=== PATIENT | female | born 1930 | race Caucasian/White ===

== ENCOUNTER → 2016-05-28 | Outpatient (CLI) | payer MEDICARE, MEDICAID ==
[~2016-05-28] MED LIST: NORCO 325 MG-51 TAB PO; SIMVASTATIN20 MG PO
--- NOTE | 2016-05-28 08:36 | CARDIOVASCULAR REPORT ---
"Cerebrovascular Exam Indications: 433.10 Occlusion/stenosis of carotid artery without cerebral infarction. IMPRESSIONS 1. The bilateral vertebral arteries are patent with normal antegrade flow. 2. Study suggests less than 20% stenosis involving the right internal carotid artery. 3. Study suggests 20-49% stenosis involving the left internal carotid artery. Disease regression from the study of 01-Aug-2014. Had right endarterectomy following last exam of 08/01/2014 4. Tortuous carotid arteries seen LICA History: Risk factors: Hypertension. Hyperlipidemia. Labs, prior tests, procedures, and surgery: Right endarterectomy. Labs, prior tests, procedures, and surgery: Right endarterectomy. Carotid duplex study. Complete study and Doppler flow study including spectral analysis, color and gillespie scale imaging. Height: Height: 157.5cm. Height: 62in. Weight: Weight: 51.7kg. Weight: 113.8lb. Body mass index: BMI: 20.9kg/m^2. Body surface area: BSA: 1.5m^2. Location: Vascular laboratory. Patient status: Outpatient. Tables: Arterial flow: + +--------+--------+ |Location |V sys |V ed | + +--------+--------+ |Right CCA - proximal|98.2cm/s|12.6cm/s| + +--------+--------+ |Right CCA - distal |73.9cm/s|10.2cm/s| + +--------+--------+ |Right ECA |80.1cm/s|--------| + +--------+--------+ |Right ICA - proximal|91.1cm/s|14.1cm/s| + +--------+--------+ |Right ICA - mid |70.7cm/s|14.9cm/s| + +--------+--------+ |Right ICA - distal |68.4cm/s|9.4cm/s | + +--------+--------+ |Right vertebral |74.6cm/s|--------| + +--------+--------+ |Left CCA - proximal |69.1cm/s|12.6cm/s| + +--------+--------+ |Left CCA - distal |83.3cm/s|14.9cm/s| + +--------+--------+ |Left ECA |121cm/s |--------| + +--------+--------+ |Left ICA - proximal |98.2cm/s|17.3cm/s| + +--------+--------+ |Left ICA - mid |112cm/s |20.4cm/s| + +--------+--------+ |Left ICA - distal |123cm/s |22cm/s | + +--------+--------+ |Left vertebral |35.4cm/s|--------| + +--------+--------+ Velocity ratios: + + + + + + | |Right, V sys|Right, V ed|Left, V sys|Left, V ed| + + + + + + |Max ICA/dist CCA|1.23 |1.46 |1.48 |1.48 | + + + + + + (Report amended ) Electronically signed by: Avni Grant [id number]"
== END ==
LOC: RT 07:31
DX: I25.10 Atherosclerotic heart disease of native coronary artery without angina pectoris (principal); I11.9 Hypertensive heart disease without heart failure; E78.5 Hyperlipidemia, unspecified; Z95.5 Presence of coronary angioplasty implant and graft; H54.40 Blindness, one eye, unspecified eye; I65.23 Occlusion and stenosis of bilateral carotid arteries

== ENCOUNTER → 2017-01-26 | Outpatient (CLI) | payer MEDICARE, MEDICAID ==
--- NOTE | 2017-01-26 14:19 | RADIOLOGY REPORT PS360 ---
MRI-BRAIN W/O HISTORY: Right hand and right facial numbness TIA, TRANSIENT CEREBRAL ISCHEMIC ATTACK ORDERING PHYSICIAN: Doreen Holley APRN PATIENT AGE: 86 years COMPARISON: None TECHNIQUE: Standard multiplanar multiecho sequences are performed without contrast. FINDINGS: No midline shift or mass effect is evident. There is mild generalized atrophy with a few periventricular T2 white matter hyperintensities. A small cystic areas present within the left body the caudate nucleus and basal ganglia and may be due to an area of cystic encephalomalacia. No obvious intracranial hemorrhage There is a small area of restricted diffusion in the superior aspect of the left thalamus extending into the mid aspect left powers radiata extending to the subcortical region of the left parietal lobe. This is hyperintense on the diffusion-weighted images iso to hypointense on the ADC images consistent with a subacute area of infarction. This only shows slight increased T2 signal. No mastoid effusion or sinus air-fluid level. The cerebellopontine angles, cerebellum, and brainstem are unremarkable. IMPRESSION: 1. There is a small area of subacute infarction extending from the left thalamus and powers radiata to the subcortical region of the left parietal lobe 2. 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 3. Otherwise negative MRI brain without contrast
== END ==
LOC: RAD 09:47
DX: G45.8 Other transient cerebral ischemic attacks and related syndromes (principal)

== ENCOUNTER → 2017-03-22 | Outpatient (CLI) | payer MEDICARE, MEDICAID ==
--- NOTE | 2017-03-22 10:36 | CARDIOVASCULAR REPORT ---
"Cerebrovascular Exam Indications: 433.10 Occlusion/stenosis of carotid artery without cerebral infarction. 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 IMPRESSIONS 1. The bilateral vertebral arteries are patent with normal antegrade flow. 2. Study suggests less than 20% stenosis involving the right internal carotid artery. No change from the study of 28-May-2016. 3. Study suggests 20-49% stenosis involving the left external carotid artery. No change from the study of 28-May-2016. History: Risk factors: Hypertension. Hyperlipidemia. Labs, prior tests, procedures, and surgery: Right endarterectomy. Labs, prior tests, procedures, and surgery: Right endarterectomy. Carotid duplex study. Complete study and Doppler flow study including spectral analysis, color and gillespie scale imaging. Height: Height: 157.5cm. Height: 62in. Weight: Weight: 48.1kg. Weight: 105.8lb. Body mass index: BMI: 19.4kg/m^2. Body surface area: BSA: 1.45m^2. Location: Vascular laboratory. Patient status: Outpatient. Tables: Arterial flow: + +--------+--------+ |Location |V sys |V ed | + +--------+--------+ |Right CCA - proximal|88cm/s |10.7cm/s| + +--------+--------+ |Right CCA - distal |70.4cm/s|8.2cm/s | + +--------+--------+ |Right ECA |99.9cm/s|--------| + +--------+--------+ |Right ICA - proximal|96.8cm/s|12.6cm/s| + +--------+--------+ |Right ICA - mid |67.8cm/s|12.1cm/s| + +--------+--------+ |Right ICA - distal |50.2cm/s|11.6cm/s| + +--------+--------+ |Right vertebral |62.3cm/s|--------| + +--------+--------+ |Left CCA - proximal |76.1cm/s|9.9cm/s | + +--------+--------+ |Left CCA - distal |88.8cm/s|12.1cm/s| + +--------+--------+ |Left ECA |122cm/s |--------| + +--------+--------+ |Left ICA - proximal |96.3cm/s|11.8cm/s| + +--------+--------+ |Left ICA - mid |79.6cm/s|11.8cm/s| + +--------+--------+ |Left ICA - distal |52.5cm/s|14.2cm/s| + +--------+--------+ |Left vertebral |30cm/s |--------| + +--------+--------+ Velocity ratios: + + + + + + | |Right, V sys|Right, V ed|Left, V sys|Left, V ed| + + + + + + |Max ICA/dist CCA|1.38 |1.54 |1.08 |1.17 | + + + + + + (Report amended ) Electronically signed by: Percy Martinez [id number]"
== END ==
LOC: RT 09:49 → LAB 09:49 → RT 10:15
DX: I63.032 Cerebral infarction due to thrombosis of left carotid artery (principal); Z79.899 Other long term (current) drug therapy